=== PATIENT | female | born 1970 | race American Indian/Alaskan Native ===

== ENCOUNTER 2017-02-02 06:07 | Inpatient (IN) | payer BC, MEDICARE ==
[2017-01-28 11:34] VITALS: BMI 34.3
[2017-02-02] MEDS ORDERED: Bupivacaine HCl 0.25% PF (30 ml) Inj ONE (07:10)
[2017-02-02] MEDS ORDERED: Lidocaine 2% w Epi 1:100,000 Inj IJ ONE (07:11)
[2017-02-02] MEDS ORDERED: Absorbable Gelatin Sponge Size 12-7 ONE (07:11)
[2017-02-02] MEDS ORDERED: Bacitracin Ointment 30 GM TUBE ONE (07:11)
[2017-02-02] MEDS ORDERED: Rocuronium 10 mg/ml (5 ml) ONE (07:12)
[2017-02-02] MEDS ORDERED: Midazolam 2 MG/2 ML VIAL ONE (07:12)
[2017-02-02] MEDS ORDERED: Propofol 10 mg/ml Inj (20 ML) ONE (07:12)
[2017-02-02] MEDS ORDERED: Succinylcholine 200 mg/10 ml Inj IV ONE (07:16)
[2017-02-02] MEDS ORDERED: Lidocaine 4% (Laryng-O-Jet) Kit MM ONE (07:18)
--- NOTE | 2017-02-02 07:27 | CP.PCM.CON ---
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 Denton for further evaluation,denies pelvic paresthesias,fall ,bowel or bladder incontinance. Review of Systems - Review of Systems Systems not reviewed;Unavailable: Acuity of Condition - EENT Eyes: Requires Corrective Lenses - Cardiovascular Additional comments: Hx TIA x2 in past neg w/u,denies angina,palpitations or [place] - Musculoskeletal Musculoskeletal: Muscle Weakness, Radiating Pain into Limb, Tingling - Integumentary Additional comments: healed surgical scar's - Neurological Neurological: As Per HPI Past Patient History - Infectious Disease Hx of Infectious Diseases: None - Tetanus Immunizations Tetanus Immunization: Unknown - Past Medical History & Family History Past Medical History?: Yes - Past Social History Smoking Status: Current Some Days Smoker Chewing Tobacco Use: No Cigar Use: No 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 Alcohol: 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 Drugs: Cannabis Home Situation {Lives}: With Family Domestic Violence: Negative - CARDIAC Hx Cardiac Disorders: Yes - PULMONARY Hx Respiratory Disorders: Yes (SMOKES CIGARETTES) - NEUROLOGICAL Hx Transient Ischemic Attacks (TIA): No - HEENT Hx HEENT Problems: No - RENAL Hx Chronic Kidney Disease: No - HEMATOLOGICAL/ONCOLOGICAL Hx Blood Disorders: Yes - INTEGUMENTARY Hx Dermatological Problems: Yes (TATTOOS) - MUSCULOSKELETAL/RHEUMATOLOGICAL Hx Musculoskeletal Disorders: Yes (LAMINECTOMY L4L5,LUMBAR RADICULOPATHY) Other/Comment: TITANIUM SUE TO LOWER BACK.LAMINECTOMY, - GASTROINTESTINAL Hx Gastrointestinal Disorders: No - GENITOURINARY/GYNECOLOGICAL Hx Genitourinary Disorders: Yes - PSYCHIATRIC Hx Psychophysiologic Disorder: No - SURGICAL HISTORY Hx Surgeries: Yes (PARTIAL HYSTERECTOMY,C/S X 1) Hx Appendectomy: Yes (1991) Hx Hysterectomy: Yes Other/Comment: BACK SURGERY WITH TITANIUM SUE,CESEREAN SECTION X 1 - ANESTHESIA Hx Anesthesia: Yes Hx Anesthesia Reactions: No Hx Malignant Hyperthermia: No Has any member of the family had a problem w/ anesthesia?: No Meds Allergies/Adverse Reactions: Allergies Allergy/AdvReac Type Severity Reaction Status Date / Time Penicillins Allergy ANAPHYLAXIS Verified 02/02/17 06:47 Physical Exam - Constitutional Appears: Well, Non-toxic, No Acute Distress - Head Exam Head Exam: ATRAUMATIC, NORMAL INSPECTION, NORMOCEPHALIC - Eye Exam Eye Exam: EOMI, Normal appearance, PERRL Pupil Exam: NORMAL ACCOMODATION - ENT Exam ENT Exam: Mucous Membranes Moist - Neck Exam Neck exam: Positive for: Normal Inspection - Respiratory Exam Respiratory Exam: Clear to Auscultation Bilateral, NORMAL BREATHING PATTERN - Cardiovascular Exam Cardiovascular Exam: REGULAR RHYTHM, +S1, +S2 - GI/Abdominal Exam GI & Abdominal Exam: Normal Bowel Sounds, Soft - Rectal Exam Rectal Exam: Deferred - Extremities Exam Extremities exam: Positive for: pedal pulses present Additional comments: + Lichen Planus - Back Exam Back exam: vertebral tenderness - Neurological Exam Neurological exam: Alert, Oriented x3 Additional comments: Minimally able to lift left leg off bed,LLE weakness 3+/5 with paresthesias,RLE 4+/5 sensory intact,unstewady gait,no pelvic paresthesias,depressed DTR's - Psychiatric Exam Psychiatric exam: Normal Affect, Normal Mood - Skin Skin Exam: Dry, Intact Results - Vital Signs Recent Vital Signs: Last Vital Signs Temp 98.3 F 02/02/17 06:41 Pulse 64 02/02/17 06:41 Resp 18 02/02/17 06:41 BP 116/75 02/02/17 06:41 Pulse Ox 99 02/02/17 06:41 Assessment & Plan - Assessment and Plan (Free Text) Assessment: 46 yo female with recurrent Lumbar Spondylosis/Instability/LLE radiculapathy Plan: here today for proposed Lumbar Laminectomy and extension of prior fusion with Dr. Denton,risks and benefits explained to pt,expressed understanding and wishes to proceed.
[2017-02-02] MEDS ORDERED: Lactated Ringer's 1,000 ML IV ONE ×2 (07:47→09:07)
[2017-02-02] MEDS ORDERED: Lidocaine 2% w Epi 1:200,000 Pf Inj IJ ONE (08:08)
[2017-02-02] MEDS ORDERED: Dexamethasone 4 mg/1 ml ONE (08:25)
[2017-02-02] MEDS ORDERED: HEMOSTATIC MATRIX 10 ML DIS.NEEDLE TOP ONE (08:32)
[2017-02-02] MEDS ORDERED: Neostigmine Methylsulfate 3mg/3ml Syringe IV ONE (08:57)
[2017-02-02] MEDS ORDERED: Bupivacaine 0.25% Inj(30mL) IJ ONE (10:19)
[2017-02-02] MEDS ORDERED: HYDROmorphone 0.5 mg/0.5 ml ISec ONE (10:42)
[2017-02-02] MEDS: HYDROmorphone 0.5 mg/0.5 ml ISec IVP PRN ×5 (10:50→14:30)
[2017-02-02] MEDS: Lactated Ringer's 1,000 ML IV SCH (15:30)
[2017-02-02] MEDS: Dexamethasone 4 MG in Sodium Chloride 0.9% 50 ML IVPB SCH ×2 (16:55→23:13)
--- NOTE | 2017-02-02 16:56 | RAD ---
PROCEDURE: Fluoroscopy over 1 hour HISTORY: PLIF COMPARISON: None TECHNIQUE: Standard protocol for this study/examination. FINDINGS: Total fluoroscopic time (continuous mode) utilized during the procedure: 34.1 seconds. IMPRESSION: Submitted images from the current procedure: 1.0
[2017-02-02] MEDS: Clindamycin 600 MG in Sodium Chloride 0.9% 100 ML IVPB SCH (21:03)
[2017-02-03] MEDS: Dexamethasone 4 MG in Sodium Chloride 0.9% 50 ML IVPB SCH ×4 (04:23→21:30)
[2017-02-03] MEDS: Lactated Ringer's 1,000 ML IV SCH ×2 (04:25→13:06)
--- NOTE | 2017-02-03 08:49 | OP ---
PROCEDURE DATE: 02/02/2017 PREOPERATIVE DIAGNOSES: Lumbar spondylosis and spinal instability. POSTOPERATIVE DIAGNOSES: Lumbar spondylosis and spinal instability. PROCEDURE: Re-exploration of L4-L5 lumbar laminectomy fusion instrumentation, L2-L4 lumbar laminecto my and L2-L5 pedicle screw fixation instrumentation, L2-L5 posterolateral fusion. Fluoroscopy has be en used. Microscope has been used. SURGEON: Dr. Denton CRATE TIER: Cassie Glass. Cassie Glass is a physician per di[place] physical therapist assistant who helped perform the surgery. She stayed throughout the case from beginning to the end. DESCRIPTION OF PROCEDURE: The patient was brought to the operating room, administered general endotr acheal anesthesia, placed in a prone position on a Damian table. Care was taken to protect all the pressure points. Back of the lumbar area thoroughly prepped and draped in standard sterile manner af ter marking for skin incision for lumbar laminectomy and fusion. After prepping and draping the area , skin has been incised. Bleeding skin areas have been controlled by bipolar plant superintendent. Using a Osorio vie plant superintendent, subcutaneous tissue has been cut. By using blunt dissection, the ____ defects have b een exposed at L4 and L5 and the previously placed rods and screws have been exposed. L2, L3, L4 owens dinesh has been exposed. At this point, the deep retractors have been applied. By using a traditional landmark, point of entry has been noted at L2 and L3. Amendia system screws have been placed and at this point under fluoroscopy guided control, position has been confirmed to be good. At this point, the previously placed instrumentation has been removed. ____ ____ has also been removed. Titanium r ods have been placed from L2-L5. Cap nuts have been used in order to secure them. After that, under microscope magnification and illumination, the lamina of L2, L3 and L4 have been removed. By using high-speed drill, the lamina have been drilled to eggshell thickness at L2-L3, L3-L4. By using a fin e Kerrison punch, thinned out surrounding lamina, ____ and thickened and buckled ligamentum flavum joseph s been removed decompressing this area. After that, lateral aspect of facet joints have been decorti cated and demineralized bone placed in the area achieving a posterolateral fusion from L2-L5. After that, hemostasis best achieved. Damian drain placed in the wound, brought out through separate stab knife skin incision. Muscles and fascia closed with 1-0 Vicryl, subcutaneous with 3-0 Vicryl, skin has been closed with intradermal 3-0 Vicryl stitches. The patient tolerated the procedure. After pr ocedure, mobilized to the recovery room in stable condition. Hi Denton MD cc: [id number] TT: 02/02/2017 18:24:04 sn
--- NOTE | 2017-02-03 09:26 | CP.PCM.CON ---
History of Present Illness - History of Present Illness History of Present Illness: 46 yo woman s/p lumbar fusion, POD #2. This is the patient's second lumbar fusion, prior to the surgery she was mostly on Tylenol for pain. The current pain is sharp, constant, with radiation down both thighs/legs. She was placed on Dilaudid OPAL POLISHER overnight and responded well to it.l She states that Flexeril was ineffective for her. She had been on both Neurontin and Lyrica before but doesn't recall their effects. 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 Drugs: Cannabis Home Situation {Lives}: With Family Domestic Violence: Negative - CARDIAC Hx Cardiac Disorders: Yes - PULMONARY Hx Respiratory Disorders: Yes (SMOKES CIGARETTES) - NEUROLOGICAL Hx Transient Ischemic Attacks (TIA): No - HEENT Hx HEENT Problems: No - RENAL Hx Chronic Kidney Disease: No - HEMATOLOGICAL/ONCOLOGICAL Hx Blood Disorders: Yes - INTEGUMENTARY Hx Dermatological Problems: Yes (TATTOOS) - MUSCULOSKELETAL/RHEUMATOLOGICAL Hx Musculoskeletal Disorders: Yes (LAMINECTOMY L4L5,LUMBAR RADICULOPATHY) Other/Comment: TITANIUM SUE TO LOWER BACK.LAMINECTOMY, - GASTROINTESTINAL Hx Gastrointestinal Disorders: No - GENITOURINARY/GYNECOLOGICAL Hx Genitourinary Disorders: Yes - PSYCHIATRIC Hx Psychophysiologic Disorder: No - SURGICAL HISTORY Hx Surgeries: Yes (PARTIAL HYSTERECTOMY,C/S X 1) Hx Appendectomy: Yes (1991) Hx Hysterectomy: Yes Other/Comment: BACK SURGERY WITH TITANIUM SUE,CESEREAN SECTION X 1 - ANESTHESIA Hx Anesthesia: Yes Hx Anesthesia Reactions: No Hx Malignant Hyperthermia: No Has any member of the family had a problem w/ anesthesia?: No Meds Allergies/Adverse Reactions: Allergies Allergy/AdvReac Type Severity Reaction Status Date / Time Penicillins Allergy ANAPHYLAXIS Verified 02/02/17 06:47 - Medications Medications: Current Medications Amlodipine Besylate (Norvasc) 10 mg PO DAILY [facility] Docusate Sodium (Colace) 100 mg PO BID [facility] Hydromorphone HCl (Dilaudid 0.2 Mg/Ml 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 Block Repairer) 0 mg IV PRN PRN; Protocol PRN Reason: Pain, severe (8-10) Last Admin: 02/02/17 15:30 Dose: 0 mg Clindamycin Phosphate 600 mg/ (Sodium Chloride) 104 mls @ 104 mls/hr IVPB Q12 [facility] Last Admin: 02/02/17 21:03 Dose: 104 mls/hr Dexamethasone 4 mg/ Sodium (Chloride) 51 mls @ 102 mls/hr IVPB Q6 [facility] Last Admin: 02/03/17 04:23 Dose: 102 mls/hr Lactated Ringer's (Lactated Ringer's) 1,000 mls @ 80 mls/hr IV .[id number] [facility] Stop: 02/03/17 15:00 Last Admin: 02/03/17 04:25 Dose: 80 mls/hr Lactulose (Enulose) 20 gm PO DAILY PRN PRN Reason: Constipation Pregabalin (Lyrica) 50 mg PO TID [facility] Physical Exam - Respiratory Exam Respiratory Exam: NORMAL BREATHING PATTERN - Cardiovascular Exam Cardiovascular Exam: REGULAR RHYTHM - Back Exam Additional comments: Dressing intact. TTP. Results - Vital Signs Recent Vital Signs: Last Vital Signs Temp 98.1 F 02/03/17 08:25 Pulse 59 L 02/03/17 08:25 Resp 18 02/03/17 08:25 BP 109/63 02/03/17 08:25 Pulse Ox 100 02/03/17 08:25 Assessment & Plan (1) Herniated disc Assessment and Plan: 46 yo woman s/p 2-level lumbar fusion, POD #1. - continue Dilaudid OPAL POLISHER for one more day, can change to 1mg IV q3h PRN tomorrow - start LYrica 50mg q8h - start Zanaflex 4mg q8h - PT eval Status: Acute
[2017-02-03] MEDS: Clindamycin 600 MG in Sodium Chloride 0.9% 100 ML IVPB SCH ×2 (09:46→21:26)
--- NOTE | 2017-02-03 14:04 | CP.PCM.HP ---
<Mike Cornell - Last Filed: 02/03/17 13:59> History of Present Illness - History of Present Illness History of Present Illness: 46 yo female with history of lumbar laminectomy and fusion L4-5 in 2015 with resolution of symptoms though pain reoccurred gradually over a year and worsening over past 6 mos w/ radiating bilateral lower extremities with paresthesias & worsening inability to ambulate due to left leg weakness. Patient is s/p lumbar fusion, POD #[address] Denton. Patient states she feels well though pain is still present. Pain management on board. No fever, chills, chest pain, abdominal pain, headache. Patient admits to constipation. Tolerating PO well. 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 Home Situation {Lives}: With Family Domestic Violence: Negative - CARDIAC Hx Cardiac Disorders: Yes - PULMONARY Hx Respiratory Disorders: Yes (SMOKES CIGARETTES) - NEUROLOGICAL Hx Transient Ischemic Attacks (TIA): No - HEENT Hx HEENT Problems: No - RENAL Hx Chronic Kidney Disease: No - HEMATOLOGICAL/ONCOLOGICAL Hx Blood Disorders: Yes - INTEGUMENTARY Hx Dermatological Problems: Yes (TATTOOS) - MUSCULOSKELETAL/RHEUMATOLOGICAL Hx Musculoskeletal Disorders: Yes (LAMINECTOMY L4L5,LUMBAR RADICULOPATHY) Other/Comment: TITANIUM SUE TO LOWER BACK.LAMINECTOMY, - GASTROINTESTINAL Hx Gastrointestinal Disorders: No - GENITOURINARY/GYNECOLOGICAL Hx Genitourinary Disorders: Yes - PSYCHIATRIC Hx Psychophysiologic Disorder: No - SURGICAL HISTORY Hx Surgeries: Yes (PARTIAL HYSTERECTOMY,C/S X 1) Hx Appendectomy: Yes (1991) Hx Hysterectomy: Yes Other/Comment: BACK SURGERY WITH TITANIUM SUE,CESEREAN SECTION X 1 - ANESTHESIA Hx Anesthesia: Yes Hx Anesthesia Reactions: No Hx Malignant Hyperthermia: No Has any member of the family had a problem w/ anesthesia?: No Meds Allergies/Adverse Reactions: Allergies Allergy/AdvReac Type Severity Reaction Status Date / Time Penicillins Allergy ANAPHYLAXIS Verified 02/02/17 06:47 Physical Exam - Constitutional Appears: Well, Non-toxic, No Acute Distress - Head Exam Head Exam: ATRAUMATIC, NORMAL INSPECTION, NORMOCEPHALIC - Eye Exam Eye Exam: EOMI, Normal appearance - Neck Exam Neck exam: Positive for: Normal Inspection - Respiratory Exam Respiratory Exam: Clear to Auscultation Bilateral, NORMAL BREATHING PATTERN - Cardiovascular Exam Cardiovascular Exam: REGULAR RHYTHM, +S1, +S2 - GI/Abdominal Exam GI & Abdominal Exam: Normal Bowel Sounds, Soft. absent: Tenderness - Extremities Exam Extremities exam: Positive for: normal inspection. Negative for: calf tenderness - Back Exam Additional comments: dressing clean dry and intact, tenderness to palpation - Neurological Exam Neurological exam: Alert, Oriented x3 - Psychiatric Exam Psychiatric exam: Normal Affect, Normal Mood - Skin Skin Exam: Dry, Intact, Normal Color, Warm Results - Vital Signs Recent Vital Signs: Last Vital Signs Temp 98.4 F 02/03/17 12:35 Pulse 70 02/03/17 12:35 Resp 18 02/03/17 12:35 BP 131/76 02/03/17 12:35 Pulse Ox 97 02/03/17 12:35 Assessment & Plan (1) Herniated disc Assessment and Plan: s/p 2nd laminectomy/extension of fusion POD #1 Pain control via pain management/surgery PT ordered Colace for constipation likely related to pain meds Status: Acute (2) Hypertension Assessment and Plan: Controlled. C/w norvasc Status: Acute (3) Prophylactic measure Assessment and Plan: SCDs for now, awaiting labs Status: Acute <Paresh Rivera - Last Filed: 02/07/17 09:12> Results - Vital Signs Recent Vital Signs: Last Vital Signs Temp 98.6 F 02/04/17 15:50 Pulse 89 02/04/17 15:50 Resp 18 02/04/17 15:50 BP 152/80 H 02/04/17 15:50 Pulse Ox 95 02/04/17 15:50 - Labs Result Diagrams: 02/03/17 17:10 02/03/17 17:10 Assessment & Plan - Assessment and Plan (Free Text) Plan: Iwas present during evaluation and personally examined patient. Discussed with Dr Cornell re plans f care and tx. Paresh Rivera M.D.
[2017-02-03 17:17] LABS: HEMATOCRIT 32.2 % (34.0-47.0); MEAN CELL VOLUME 89.4 fl (81.0-99.0); MEAN CORPUSCULAR HEMOGLOBIN 28.1 pg (27.0-31.0); MEAN CORPUSCULAR HGB CONC 31.5 g/dL (33.0-37.0); RED CELL DISTRIBUTION WIDTH 14.8 % (11.5-14.5); WHITE BLOOD COUNT 18.1 K/uL (4.8-10.8)
[2017-02-03 17:29] LABS: BLOOD UREA NITROGEN 13 mg/dl (7-17); CALCIUM 9.7 mg/dL (8.4-10.2); CARBON DIOXIDE 26 mmol/L (22-30); CHLORIDE 104 mmol/L (98-107); GFR AFRICAN-AMERICAN > 60; GLUCOSE,RANDOM 133 mg/dL (65-105); POTASSIUM 4.6 MMOL/L (3.6-5.0); SODIUM 138 mmol/l (132-148)
[2017-02-04] MEDS: Dexamethasone 4 MG in Sodium Chloride 0.9% 50 ML IVPB SCH ×2 (04:50→09:06)
--- NOTE | 2017-02-04 08:50 | CP.PCM.PN ---
Subjective - Date & Time of Evaluation Date of Evaluation: 02/04/17 Time of Evaluation: 08:20 - Subjective Subjective: 46 yo woman, POD #2, s/p lumbar fusion. Doing well clinically, pain is controlled on regimen. Complains of constipation. No side effects to current regimen. Zanaflex helps better than Flexeril. Objective - Vital Signs/Intake and Output Vital Signs (last 24 hours): Temp Pulse Resp BP Pulse Ox 98.5 F 94 H 20 114/70 100 02/04/17 08:14 02/04/17 08:14 02/04/17 08:14 02/04/17 08:14 02/04/17 08:14 Intake and Output: 02/04/17 02/04/17 06:59 18:59 Output Total 130 90 Balance -130 -90 - Medications Medications: Current Medications Amlodipine Besylate (Norvasc) 10 mg PO DAILY [facility] Last Admin: 02/03/17 09:47 Dose: 10 mg Docusate Sodium (Colace) 100 mg PO BID [facility] Last Admin: 02/03/17 16:46 Dose: 100 mg Hydromorphone HCl (Dilaudid) 1 mg IVP Q3 PRN PRN Reason: Pain, severe (8-10) Clindamycin Phosphate 600 mg/ (Sodium Chloride) 104 mls @ 104 mls/hr IVPB Q12 [facility] Last Admin: 02/03/17 21:26 Dose: 104 mls/hr Dexamethasone 4 mg/ Sodium (Chloride) 51 mls @ 102 mls/hr IVPB Q6 [facility] Last Admin: 02/04/17 04:50 Dose: 102 mls/hr Lactulose (Enulose) 20 gm PO DAILY PRN PRN Reason: Constipation Last Admin: 02/04/17 05:32 Dose: 20 gm Pregabalin (Lyrica) 50 mg PO TID [facility] Last Admin: 02/03/17 16:46 Dose: 50 mg Tizanidine HCl (Zanaflex) 4 mg PO Q8 [facility] Last Admin: 02/04/17 00:38 Dose: 4 mg - Labs Labs: 02/03/17 17:10 02/03/17 17:10 - Respiratory Exam Respiratory Exam: NORMAL BREATHING PATTERN - Cardiovascular Exam Cardiovascular Exam: REGULAR RHYTHM Assessment and Plan (1) Herniated disc Assessment & Plan: 46 yo woman s/p lumbar fusion. POD #2. 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
[2017-02-04] MEDS: Clindamycin 600 MG in Sodium Chloride 0.9% 100 ML IVPB SCH (09:06)
[2017-02-04] MEDS ORDERED: Magnesium Citrate Oral SOL (300 ml) PO ONE (10:00)
[2017-02-04] MEDS: HYDROmorphone 0.5 mg/0.5 ml ISec IVP PRN ×2 (12:36→16:24)
--- NOTE | 2017-02-04 13:44 | CP.PCM.PN ---
<Mike Cornell - Last Filed: 02/04/17 13:38> Subjective - Date & Time of Evaluation Date of Evaluation: 02/04/17 Time of Evaluation: 10:38 - Subjective Subjective: Patient seen and examined at bedside. No acute events overnight. Transferred to Med/Surg floor. Patient feels much improved with pain regime. Flatus present though still no BM. No fever, chills, abdominal pain, headache, chest pain, or sob. OOB. 90ml of fluid drained in last 24hrs. Objective - Vital Signs/Intake and Output Vital Signs (last 24 hours): Temp Pulse Resp BP Pulse Ox 98.5 F 94 H 20 114/70 100 02/04/17 08:14 02/04/17 09:07 02/04/17 08:14 02/04/17 09:07 02/04/17 08:14 Intake and Output: 02/04/17 02/04/17 06:59 18:59 Output Total 130 90 Balance -130 -90 - Medications Medications: Current Medications Amlodipine Besylate (Norvasc) 10 mg PO DAILY [facility] Last Admin: 02/04/17 09:07 Dose: 10 mg Docusate Sodium (Colace) 100 mg PO BID [facility] Last Admin: 02/04/17 09:07 Dose: 100 mg Hydromorphone HCl (Dilaudid) 1 mg IVP Q3 PRN PRN Reason: Pain, severe (8-10) Last Admin: 02/04/17 12:36 Dose: 1 mg Clindamycin Phosphate 600 mg/ (Sodium Chloride) 104 mls @ 104 mls/hr IVPB Q12 [facility] Last Admin: 02/04/17 09:06 Dose: 104 mls/hr Dexamethasone 4 mg/ Sodium (Chloride) 51 mls @ 102 mls/hr IVPB Q8 [facility] Lactulose (Enulose) 20 gm PO DAILY PRN PRN Reason: Constipation Last Admin: 02/04/17 09:07 Dose: 20 gm Pregabalin (Lyrica) 50 mg PO TID [facility] Last Admin: 02/04/17 11:21 Dose: 50 mg Tizanidine HCl (Zanaflex) 4 mg PO Q8 [facility] Last Admin: 02/04/17 09:08 Dose: 4 mg - Labs Labs: 02/03/17 17:10 02/03/17 17:10 - Constitutional Appears: Well, Non-toxic, No Acute Distress - Head Exam Head Exam: ATRAUMATIC, NORMAL INSPECTION, NORMOCEPHALIC - Eye Exam Eye Exam: EOMI, Normal appearance - Neck Exam Neck Exam: Normal Inspection - Respiratory Exam Respiratory Exam: Clear to Ausculation Bilateral, NORMAL BREATHING PATTERN - Cardiovascular Exam Cardiovascular Exam: REGULAR RHYTHM, +S1, +S2. absent: Murmur - GI/Abdominal Exam GI & Abdominal Exam: Soft, Normal Bowel Sounds. absent: Tenderness - Neurological Exam Neurological Exam: Alert, Awake, Oriented x3 - Psychiatric Exam Psychiatric exam: Normal Affect, Normal Mood - Skin Skin Exam: Dry, Intact, Normal Color, Warm Additional comments: dressing clean dry and intact - Additional Findings Additional findings: drain with moderate amount of serosangius fluid Assessment and Plan (1) Herniated disc Assessment & Plan: s/p 2nd laminectomy/extension of fusion POD #2 Pain control via pain management/surgery c/w PT Colace/dulcolax/mag citrate/lactulose prn for constipation likely related to pain meds Spoke with surgical team, drain will stay for the weekend as there is good output. Consider further rehab via TCU. Status: Acute (2) Hypertension Assessment & Plan: Controlled. C/w norvasc Status: Acute (3) Prophylactic measure Assessment & Plan: mild thrombocytopenia noted on CBC, will hold Lovenox until repeat CBC tomorrow. SCDs/OOB for now Status: Acute <Paresh Rivera - Last Filed: 02/07/17 09:13> Objective - Vital Signs/Intake and Output Vital Signs (last 24 hours): Temp Pulse Resp BP Pulse Ox 98.6 F 89 18 152/80 H 95 02/04/17 15:50 02/04/17 15:50 02/04/17 15:50 02/04/17 15:50 02/04/17 15:50 - Labs Labs: 02/03/17 17:10 02/03/17 17:10 Assessment and Plan - Assessment and Plan (Free Text) Plan: I was present during evaluation and discussed with patient re plans of care. Paresh Rivera M.D.
[2017-02-04 15:51] VITALS: BP 152/80; PULSE 89; RESP 18; TEMP 98.6; O2SAT 95
[2017-02-04] MEDS ORDERED: Dexamethasone 4 MG in Sodium Chloride 0.9% 50 ML IVPB SCH (17:00)
--- NOTE | 2017-02-07 09:16 | CP.PCM.DIS ---
Provider - Provider Date of Admission: 02/02/17 11:04 Attending physician: Paresh Rivera MD Primary care physician: Mary Ellen Aleman MD Time Spent in preparation of Discharge (in minutes): 30 Hospital Course - Lab Results Lab Results: Most Recent Lab Values WBC 18.1 K/uL (4.8-10.8) H D 02/03/17 17:10 RBC 3.60 Mil/uL (3.80-5.20) L 02/03/17 17:10 Hgb 10.1 g/dL (12.0-16.0) L D 02/03/17 17:10 Hct 32.2 % (34.0-47.0) L 02/03/17 17:10 MCV 89.4 fl (81.0-99.0) 02/03/17 17:10 MCH 28.1 pg (27.0-31.0) 02/03/17 17:10 MCHC 31.5 g/dL (33.0-37.0) L 02/03/17 17:10 RDW 14.8 % (11.5-14.5) H 02/03/17 17:10 Plt Count 146 K/uL (130-400) 02/03/17 17:10 Sodium 138 mmol/l (132-148) 02/03/17 17:10 Potassium 4.6 MMOL/L (3.6-5.0) 02/03/17 17:10 Chloride 104 mmol/L (98-107) 02/03/17 17:10 Carbon Dioxide 26 mmol/L (22-30) 02/03/17 17:10 Anion Gap 12 (10-20) 02/03/17 17:10 BUN 13 mg/dl (7-17) 02/03/17 17:10 Creatinine 0.7 mg/dL (0.7-1.2) 02/03/17 17:10 Est GFR ( Amer) > 60 02/03/17 17:10 Est GFR (Non-Af Amer) > 60 02/03/17 17:10 Random Glucose 133 mg/dL (65-105) H 02/03/17 17:10 Calcium 9.7 mg/dL (8.4-10.2) 02/03/17 17:10 - Hospital Course Hospital Course: This is a 46 y/0 female with hx of intractable lower back pain and previous hx of L4L5 laminectomy. Post op period was unremarkable except for significant amount of drainage. She was started on Phys therapy and suggested to continue PT at the subacute rehab/ TCU. Discharge Exam - Head Exam Head Exam: ATRAUMATIC, NORMAL INSPECTION, NORMOCEPHALIC - Eye Exam Eye Exam: Normal appearance - Respiratory Exam Respiratory Exam: NORMAL BREATHING PATTERN - Cardiovascular Exam Cardiovascular Exam: REGULAR RHYTHM - GI/Abdominal Exam GI & Abdominal Exam: Normal Bowel Sounds - Neurological Exam Neurological exam: CN II-XII Intact, Oriented x3 - Psychiatric Exam Psychiatric exam: Anxious Discharge Plan - Discharge Medications Prescriptions: Clindamycin [Cleocin] 600 mg IVPB Q12 #8 vial Dexamethasone [Decadron] 4 mg IVPB Q8 #6 vial oxyCODONE/Acetaminophen [Percocet 5/325 mg Tab] 1 ea PO Q4 PRN #14 tab PRN Reason: pain - Follow Up Plan Condition: GOOD Disposition: REHAB FACILITY/REHAB UNIT Instructions: Laminectomy (DC) Additional Instructions: patient cleared for discharge to TCU when bed available as per cont. Clina, decadron taper discussed with Dr Lopez and discharge patient in stable condition. Paresh Rivera M.D. Referrals: Mary Ellen Aleman MD [Primary Care Provider] - Hi Denton MD [Staff Provider] - Paresh Rivera MD [Staff Provider] -
== END 2017-02-04 18:15 | DRG 460 ==
LOC: H.OPSURG 06:07 → H.TEL 11:04 → H.MEDSURG1 02-03 18:29
PROVIDERS: ADMIT Family Medicine; ATTEND Family Medicine
PROC: 01NB0ZZ Release Lumbar Nerve, Open Approach (ICD-10-PCS; 2017-02-02)
PROC: 0SG10Z1 (ICD-10-PCS; principal; 2017-02-02 07:45)
PROC: F07Z9FZ Gait Training/Functional Ambulation Treatment using Assistive, Adaptive, Supportive or Protective Equipment (ICD-10-PCS; 2017-02-03)
DX: M47.816 Spondylosis without myelopathy or radiculopathy, lumbar region (principal); D69.59 Other secondary thrombocytopenia; M51.26 Other intervertebral disc displacement, lumbar region; I10 Essential (primary) hypertension; K59.09 Other constipation; F17.210 Nicotine dependence, cigarettes, uncomplicated; Z88.0 Allergy status to penicillin

== ENCOUNTER 2017-02-04 17:26 | Inpatient (IN) | payer BC, OTHER ==
[2017-01-28 09:31] VITALS: BMI 34.3
[2017-02-04 19:45] VITALS: RESP 20
[2017-02-04] MEDS: Clindamycin 600 MG in Sodium Chloride 0.9% 100 ML IVPB SCH (20:25)
[2017-02-04] MEDS ORDERED: Clindamycin 300 mg/2 ml Inj IVPB SCH (21:00)
[2017-02-04] MEDS: Oxycodone/Acetaminophen 5/325 mg Tab PO PRN (23:17)
[2017-02-05] MEDS: Dexamethasone 4 MG in Sodium Chloride 0.9% 50 ML IVPB SCH ×2 (00:20→09:32)
[2017-02-05] MEDS ORDERED: Dexamethasone 4 mg/1 ml IVPB SCH (01:00)
[2017-02-05] MEDS: Oxycodone/Acetaminophen 5/325 mg Tab PO PRN ×2 (06:56→16:26)
[2017-02-05] MEDS: Clindamycin 600 MG in Sodium Chloride 0.9% 100 ML IVPB SCH ×2 (08:23→20:22)
[2017-02-06] MEDS: Oxycodone/Acetaminophen 5/325 mg Tab PO PRN ×3 (05:06→20:30)
[2017-02-06] MEDS: Clindamycin 600 MG in Sodium Chloride 0.9% 100 ML IVPB SCH ×2 (17:11→19:21)
[2017-02-07] MEDS: Clindamycin 600 MG in Sodium Chloride 0.9% 100 ML IVPB SCH ×2 (05:38→17:28)
[2017-02-07] MEDS: Oxycodone/Acetaminophen 5/325 mg Tab PO PRN ×3 (05:47→21:18)
--- NOTE | 2017-02-07 09:25 | CP.PCM.HP ---
History of Present Illness - History of Present Illness History of Present Illness: This is a 46 y/o female with hx of intractable pain was admitted to TCU for continuation of phys therapy. She has a hx of intractable pain lower back from herniated disc. Had a laminectomy L2L3 and post op period was unremarkable. She had previous L4L5 laminectomy. Has hx of HTN Has no chets pain or SOB or fever. Patient continues to have a lot of drainage. Present on Admission - Present on Admission Any Indicators Present on Admission: No History of DVT/PE: No History of Uncontrolled Diabetes: No Urinary Catheter: No Decubitus Ulcer Present: No Past Patient History - Infectious Disease Hx of Infectious Diseases: None - Tetanus Immunizations Tetanus Immunization: Unknown - Past Medical History & Family History Past Medical History?: Yes - Past Social History Smoking Status: Current Some Days Smoker - CARDIAC Hx Cardiac Disorders: Yes - PULMONARY Hx Respiratory Disorders: Yes (SMOKES CIGARETTES) - NEUROLOGICAL HX Cerebrovascular Accident: Yes - HEENT Hx HEENT Problems: No - RENAL Hx Chronic Kidney Disease: No - HEMATOLOGICAL/ONCOLOGICAL Hx Blood Disorders: Yes Hx Anemia: Yes - INTEGUMENTARY Hx Dermatological Problems: Yes (TATTOOS) - MUSCULOSKELETAL/RHEUMATOLOGICAL Hx Musculoskeletal Disorders: Yes (LAMINECTOMY L4L5,LUMBAR RADICULOPATHY) Hx Falls: No Other/Comment: TITANIUM SUE TO LOWER BACK.LAMINECTOMY, - GASTROINTESTINAL Hx Gastrointestinal Disorders: No - GENITOURINARY/GYNECOLOGICAL Hx Genitourinary Disorders: Yes - PSYCHIATRIC Hx Psychophysiologic Disorder: No Hx Substance Use: No - SURGICAL HISTORY Hx Surgeries: Yes (PARTIAL HYSTERECTOMY,C/S X 1) Hx Appendectomy: Yes (1991) Hx Hysterectomy: Yes Other/Comment: BACK SURGERY WITH TITANIUM SUE,CESEREAN SECTION X 1 - ANESTHESIA Hx Anesthesia: Yes Hx Anesthesia Reactions: No Hx Malignant Hyperthermia: No Has any member of the family had a problem w/ anesthesia?: No Meds Allergies/Adverse Reactions: Allergies Allergy/AdvReac Type Severity Reaction Status Date / Time Penicillins Allergy ANAPHYLAXIS Verified 02/02/17 06:47 Physical Exam - Head Exam Head Exam: NORMAL INSPECTION - Eye Exam Eye Exam: Normal appearance - ENT Exam ENT Exam: Mucous Membranes Moist - Respiratory Exam Respiratory Exam: Clear to Auscultation Bilateral - Cardiovascular Exam Cardiovascular Exam: REGULAR RHYTHM - GI/Abdominal Exam GI & Abdominal Exam: Normal Bowel Sounds - Neurological Exam Neurological exam: CN II-XII Intact - Psychiatric Exam Psychiatric exam: Normal Mood Results - Vital Signs Recent Vital Signs: Last Vital Signs Temp 97.9 F 02/07/17 08:10 Pulse 53 L 02/07/17 08:21 Resp 20 02/07/17 08:10 BP 111/66 02/07/17 08:21 Pulse Ox 99 02/07/17 08:10 Assessment & Plan (1) Gait abnormality Status: Acute (2) Gait abnormality Status: Acute (3) Hypertension Status: Acute (4) Lumbar radiculopathy Status: Acute - Assessment and Plan (Free Text) Plan: cont meds Cont tx Cont PT pain meds. keep drain for now.
--- NOTE | 2017-02-07 09:40 | CP.PCM.PN ---
Subjective - Date & Time of Evaluation Date of Evaluation: 02/07/17 Time of Evaluation: 09:37 - Subjective Subjective: Continues to have a lot of drainage. Complains of increased pain and tenderness in the right lower back and claims to have muscle spasm. Has no fever. Objective - Vital Signs/Intake and Output Vital Signs (last 24 hours): Temp Pulse Resp BP Pulse Ox 97.9 F 53 L 20 111/66 99 02/07/17 08:10 02/07/17 08:21 02/07/17 08:10 02/07/17 08:21 02/07/17 08:10 - Medications Medications: Current Medications Amlodipine Besylate (Norvasc) 10 mg PO DAILY [facility] Last Admin: 02/07/17 08:21 Dose: 10 mg Dexamethasone (Decadron) 2 mg PO Q12 [facility] Last Admin: 02/07/17 08:20 Dose: 2 mg Docusate Sodium (Colace) 100 mg PO BID [facility] Last Admin: 02/07/17 08:20 Dose: 100 mg Hydromorphone HCl (Dilaudid) 2 mg PO Q4 PRN PRN Reason: Pain, moderate (4-7) Last Admin: 02/07/17 08:29 Dose: 2 mg Clindamycin Phosphate 600 mg/ (Sodium Chloride) 104 mls @ 54 mls/hr IVPB Q12@ 0500,1700 [facility] Last Admin: 02/07/17 05:38 Dose: 54 mls/hr Ibuprofen (Motrin Tab) 600 mg PO Q8 [facility] Last Admin: 02/07/17 08:20 Dose: 600 mg Lactulose (Enulose) 20 gm PO DAILY PRN PRN Reason: Constipation Oxycodone/Acetaminophen (Percocet 5/325 Mg Tab) 1 tab PO Q4 PRN PRN Reason: pain Stop: 02/07/17 18:27 Last Admin: 02/07/17 05:47 Dose: 1 tab Pregabalin (Lyrica) 50 mg PO TID [facility] Last Admin: 02/07/17 08:20 Dose: 50 mg Tizanidine HCl (Zanaflex) 4 mg PO Q8 [facility] Last Admin: 02/07/17 08:21 Dose: 4 mg - Head Exam Head Exam: NORMAL INSPECTION - Eye Exam Eye Exam: Normal appearance - ENT Exam ENT Exam: Mucous Membranes Moist - Respiratory Exam Respiratory Exam: Clear to Ausculation Bilateral - Cardiovascular Exam Cardiovascular Exam: REGULAR RHYTHM - GI/Abdominal Exam GI & Abdominal Exam: Normal Bowel Sounds - Back Exam Additional comments: sight tenderness lower back - Neurological Exam Neurological Exam: CN II-XII Intact, Oriented x3 Assessment and Plan (1) Gait abnormality Status: Acute (2) Gait abnormality Status: Acute (3) Hypertension Status: Acute (4) Lumbar radiculopathy Status: Acute - Assessment and Plan (Free Text) Plan: Cont meds cont tx cyclobenzaprine bid cont pain meds.
[2017-02-07 11:21] LABS: BASO % 0.3 % (0.0-2.0); EOS % 0.1 % (0.0-4.0); HEMATOCRIT 33.6 % (34.0-47.0); LYMPH # 3.2 K/uL (1.0-4.3); LYMPH % 18.8 % (20.0-40.0); MEAN CELL VOLUME 88.5 fl (81.0-99.0); MEAN CORPUSCULAR HEMOGLOBIN 28.3 pg (27.0-31.0); MEAN CORPUSCULAR HGB CONC 31.9 g/dL (33.0-37.0); MEAN PLATELET VOLUME 9.3 fl (7.2-11.7); MONO # 1.2 K/uL (0.0-0.8); MONO % 6.8 % (0.0-10.0); NEUT # 12.5 K/uL (1.8-7.0); NRBC % 0.4 % (0.0-0.0); RED CELL DISTRIBUTION WIDTH 14.5 % (11.5-14.5); WHITE BLOOD COUNT 16.9 K/uL (4.8-10.8)
[2017-02-07 11:48] LABS: ALB/GLOB RATIO 1.4 (1.0-2.1); ALKALINE PHOSPHATASE 39 U/L (38-126); ALT/SGPT 26 U/L (9-52); AST/SGOT 18 U/L (14-36); BILIRUBIN,TOTAL 0.2 mg/dl (0.2-1.3); BLOOD UREA NITROGEN 13 mg/dl (7-17); CALCIUM 9.2 mg/dL (8.4-10.2); CARBON DIOXIDE 27 mmol/L (22-30); CHLORIDE 104 mmol/L (98-107); GFR AFRICAN-AMERICAN > 60; GLUCOSE,RANDOM 106 mg/dL (65-105); POTASSIUM 4.1 MMOL/L (3.6-5.0); SODIUM 137 mmol/l (132-148); TOTAL PROTEIN 6.4 G/DL (6.3-8.2)
[2017-02-07] MEDS ORDERED: Clindamycin 600 MG in Sodium Chloride 0.9% 100 ML IVPB SCH (17:09)
--- NOTE | 2017-02-07 19:06 | CP.PCM.CON ---
History of Present Illness - History of Present Illness History of Present Illness: Dr Obregon PMR consultation on Grace Bedolla, born 1970, who has been admitted to [facility]CU following L2/[address] Denton. She had past L4/5 in 2014. Post op lumbar pain is doing ok, has right lumbar radicular pain, on steroids to help with inflammation, but still draining which is likely contributing to the persistent radicular symptoms. On dilaudid po helps, but doesn't last long for her. On Lyrica as well and Flexeril. I do not feel comfortable increasing narcotics beyond what she is on regardless of her lack of subjective response to this medication Review of Systems - Constitutional Constitutional: absent: Anorexia, Chills - EENT Eyes: absent: Blind Spots, Blurred Vision Nose/Mouth/Throat: absent: Nasal Congestion, Nasal Discharge - Cardiovascular Cardiovascular: absent: Chest Pain - Respiratory Respiratory: absent: Dyspnea - Gastrointestinal Gastrointestinal: absent: Belching, Bloating - Musculoskeletal Musculoskeletal: Radiating Pain into Limb (right leg and numbness) - Neurological Neurological: Radicular Pain. absent: Abnormal Movements Past Patient History - Infectious Disease Hx of Infectious Diseases: None - Tetanus Immunizations Tetanus Immunization: Unknown - Past Medical History & Family History Past Medical History?: Yes - Past Social History Smoking Status: Heavy Smoker > 10 Cigarettes Daily Chewing Tobacco Use: No Alcohol: Other (more than social etoh) Drugs: Cannabis Home Situation {Lives}: With Family (steps) - CARDIAC Hx Cardiac Disorders: Yes - PULMONARY Hx Respiratory Disorders: Yes (SMOKES CIGARETTES) - NEUROLOGICAL HX Cerebrovascular Accident: Yes - HEENT Hx HEENT Problems: No - RENAL Hx Chronic Kidney Disease: No - HEMATOLOGICAL/ONCOLOGICAL Hx Blood Disorders: Yes Hx Anemia: Yes - INTEGUMENTARY Hx Dermatological Problems: Yes (TATTOOS) - MUSCULOSKELETAL/RHEUMATOLOGICAL Hx Musculoskeletal Disorders: Yes (LAMINECTOMY L4L5,LUMBAR RADICULOPATHY) Hx Falls: No Other/Comment: TITANIUM SUE TO LOWER BACK.LAMINECTOMY, - GASTROINTESTINAL Hx Gastrointestinal Disorders: No - GENITOURINARY/GYNECOLOGICAL Hx Genitourinary Disorders: Yes - PSYCHIATRIC Hx Psychophysiologic Disorder: No Hx Substance Use: No - SURGICAL HISTORY Hx Surgeries: Yes (PARTIAL HYSTERECTOMY,C/S X 1) Hx Appendectomy: Yes (1991) Hx Hysterectomy: Yes Other/Comment: BACK SURGERY WITH TITANIUM SUE,CESEREAN SECTION X 1 - ANESTHESIA Hx Anesthesia: Yes Hx Anesthesia Reactions: No Hx Malignant Hyperthermia: No Has any member of the family had a problem w/ anesthesia?: No Meds Allergies/Adverse Reactions: Allergies Allergy/AdvReac Type Severity Reaction Status Date / Time Penicillins Allergy ANAPHYLAXIS Verified 02/02/17 06:47 - Medications Medications: Current Medications Amlodipine Besylate (Norvasc) 10 mg PO DAILY [facility] Last Admin: 02/07/17 08:21 Dose: 10 mg Cyclobenzaprine HCl (Flexeril) 5 mg PO BID PRN PRN Reason: Muscle spasm Dexamethasone (Decadron) 2 mg PO Q12 [facility] Last Admin: 02/07/17 08:20 Dose: 2 mg Docusate Sodium (Colace) 100 mg PO BID [facility] Last Admin: 02/07/17 17:27 Dose: 100 mg Hydromorphone HCl (Dilaudid) 2 mg PO Q4 PRN PRN Reason: Pain, moderate (4-7) Last Admin: 02/07/17 08:29 Dose: 2 mg Clindamycin Phosphate 600 mg/ (Sodium Chloride) 104 mls @ 54 mls/hr IVPB Q12@ 0500,1700 [facility] Last Admin: 02/07/17 17:28 Dose: 54 mls/hr Ibuprofen (Motrin Tab) 600 mg PO Q8 [facility] Last Admin: 02/07/17 17:27 Dose: 600 mg Lactulose (Enulose) 20 gm PO DAILY PRN PRN Reason: Constipation Pregabalin (Lyrica) 50 mg PO TID [facility] Last Admin: 02/07/17 17:27 Dose: 50 mg Physical Exam - Constitutional Appears: Non-toxic, No Acute Distress - Head Exam Head Exam: ATRAUMATIC, NORMAL INSPECTION, NORMOCEPHALIC - Eye Exam Eye Exam: EOMI, Normal appearance - ENT Exam ENT Exam: Mucous Membranes Moist - Respiratory Exam Respiratory Exam: NORMAL BREATHING PATTERN - Cardiovascular Exam Cardiovascular Exam: REGULAR RHYTHM - GI/Abdominal Exam GI & Abdominal Exam: absent: Distended - Extremities Exam Extremities exam: Positive for: full ROM. Negative for: calf tenderness Results - Vital Signs Recent Vital Signs: Last Vital Signs Temp 98.6 F 02/07/17 16:45 Pulse 61 02/07/17 16:45 Resp 20 02/07/17 16:45 BP 141/72 02/07/17 16:45 Pulse Ox 99 02/07/17 16:45 - Labs Result Diagrams: 02/07/17 10:55 02/07/17 10:55 Labs: Laboratory Results - last 24 hr 02/07/17 02/07/17 10:55 10:55 WBC 16.9 H RBC 3.80 Hgb 10.7 L Hct 33.6 L MCV 88.5 MCH 28.3 MCHC 31.9 L RDW 14.5 Plt Count 210 MPV 9.3 Neut % (Auto) 74.0 Lymph % (Auto) 18.8 L [place] % (Auto) 6.8 Eos % (Auto) 0.1 Baso % (Auto) 0.3 Neut # 12.5 H Lymph # 3.2 Canadian # 1.2 H Eos # 0.0 Baso # 0.0 Sodium 137 Potassium 4.1 Chloride 104 Carbon Dioxide 27 Anion Gap 10 BUN 13 Creatinine 0.7 Est GFR ( Amer) > 60 Est GFR (Non-Af Amer) > 60 Random Glucose 106 H Calcium 9.2 Total Bilirubin 0.2 AST 18 ALT 26 Alkaline Phosphatase 39 Total Protein 6.4 Albumin 3.8 Globulin 2.7 Albumin/Globulin Ratio 1.4 Assessment & Plan - Assessment and Plan (Free Text) Assessment: 46 year old female s/p lumbar surgery, last in 2014. Post op pain and still draining. Drain has been left in. Lumbar pain is controlled right lumbar radicular pain though I do not feel comfortable increasing the pain medications which are appropriate PT/OT neurosurgery follow up for draining
[2017-02-08] MEDS: Oxycodone/Acetaminophen 5/325 mg Tab PO PRN ×5 (01:25→20:51)
[2017-02-08] MEDS: Clindamycin 600 MG in Sodium Chloride 0.9% 100 ML IVPB SCH ×2 (05:30→17:05)
[2017-02-09] MEDS: Oxycodone/Acetaminophen 5/325 mg Tab PO PRN ×5 (01:42→21:13)
[2017-02-09] MEDS: Clindamycin 600 MG in Sodium Chloride 0.9% 100 ML IVPB SCH ×2 (05:30→17:23)
--- NOTE | 2017-02-09 08:12 | CP.PCM.PN ---
Subjective - Date & Time of Evaluation Date of Evaluation: 02/08/17 Time of Evaluation: 10:10 - Subjective Subjective: Still with a lot of pain in the lower back and radiates to the right lower ext Has no fever On pain meds. Complains of constipation despite meds. Objective - Vital Signs/Intake and Output Vital Signs (last 24 hours): Temp Pulse Resp BP Pulse Ox 97.9 F 61 20 124/59 L 100 02/09/17 08:01 02/09/17 08:01 02/09/17 08:01 02/09/17 08:01 02/09/17 08:01 Intake and Output: 02/09/17 02/09/17 06:59 18:59 Output Total 60 Balance -60 - Medications Medications: Current Medications Amlodipine Besylate (Norvasc) 10 mg PO DAILY [facility] Last Admin: 02/08/17 09:09 Dose: 10 mg Cyclobenzaprine HCl (Flexeril) 5 mg PO BID PRN PRN Reason: Muscle spasm Last Admin: 02/09/17 01:45 Dose: 5 mg Dexamethasone (Decadron) 2 mg PO Q12 [facility] Last Admin: 02/08/17 20:51 Dose: 2 mg Docusate Sodium (Colace) 100 mg PO BID [facility] Last Admin: 02/08/17 17:06 Dose: 100 mg Hydromorphone HCl (Dilaudid) 2 mg PO Q4 PRN PRN Reason: Pain, moderate (4-7) Last Admin: 02/08/17 18:23 Dose: 2 mg Clindamycin Phosphate 600 mg/ (Sodium Chloride) 104 mls @ 54 mls/hr IVPB Q12@ 0500,1700 [facility] Last Admin: 02/09/17 05:30 Dose: 54 mls/hr Ibuprofen (Motrin Tab) 600 mg PO Q8 [facility] Last Admin: 02/09/17 01:44 Dose: Not Given Lactulose (Enulose) 20 gm PO DAILY PRN PRN Reason: Constipation Oxycodone/Acetaminophen (Percocet 5/325 Mg Tab) 1 tab PO Q4 PRN PRN Reason: for pains 8-10 Stop: 02/10/17 19:51 Last Admin: 02/09/17 05:34 Dose: 1 tab Pregabalin (Lyrica) 50 mg PO TID [facility] Last Admin: 02/08/17 17:08 Dose: 50 mg - Labs Labs: 02/07/17 10:55 02/07/17 10:55 - Head Exam Head Exam: NORMAL INSPECTION - Eye Exam Eye Exam: Normal appearance - Neck Exam Neck Exam: Normal Inspection - Respiratory Exam Respiratory Exam: Clear to Ausculation Bilateral - Cardiovascular Exam Cardiovascular Exam: REGULAR RHYTHM - GI/Abdominal Exam GI & Abdominal Exam: Normal Bowel Sounds - Extremities Exam Additional comments: tenderness in the LS area and right hip Assessment and Plan (1) Gait abnormality Status: Acute (2) Gait abnormality Status: Acute (3) Hypertension Status: Acute (4) Lumbar radiculopathy Status: Acute - Assessment and Plan (Free Text) Plan: cont meds adjust pain meds fleet enema lactrulose
--- NOTE | 2017-02-09 17:53 | CP.PCM.PN ---
Subjective - Date & Time of Evaluation Date of Evaluation: 02/09/17 Time of Evaluation: 17:52 - Subjective Subjective: Patient seen in room doing better with combo of flexeril and percocet still draining denies fever continue current plan of care Objective - Vital Signs/Intake and Output Vital Signs (last 24 hours): Temp Pulse Resp BP Pulse Ox 98.2 F 64 20 133/71 98 02/09/17 16:16 02/09/17 16:16 02/09/17 16:16 02/09/17 16:16 02/09/17 16:16 Intake and Output: 02/09/17 02/09/17 06:59 18:59 Output Total 60 Balance -60 - Medications Medications: Current Medications Amlodipine Besylate (Norvasc) 10 mg PO DAILY [facility] Last Admin: 02/09/17 08:30 Dose: 10 mg Cyclobenzaprine HCl (Flexeril) 5 mg PO BID PRN PRN Reason: Muscle spasm Last Admin: 02/09/17 09:49 Dose: 5 mg Dexamethasone (Decadron) 2 mg PO Q12 [facility] Last Admin: 02/09/17 08:30 Dose: 2 mg Docusate Sodium (Colace) 100 mg PO BID [facility] Last Admin: 02/09/17 17:25 Dose: 100 mg Hydromorphone HCl (Dilaudid) 2 mg PO Q4 PRN PRN Reason: Pain, moderate (4-7) Last Admin: 02/09/17 08:33 Dose: 2 mg Clindamycin Phosphate 600 mg/ (Sodium Chloride) 104 mls @ 54 mls/hr IVPB Q12@ 0500,1700 [facility] [place] Last Admin: 02/09/17 17:23 Dose: 54 mls/hr Ibuprofen (Motrin Tab) 600 mg PO Q8 [facility] Last Admin: 02/09/17 17:24 Dose: 600 mg Lactulose (Enulose) 20 gm PO DAILY PRN PRN Reason: Constipation Oxycodone/Acetaminophen (Percocet 5/325 Mg Tab) 1 tab PO Q4 PRN PRN Reason: for pains 8-10 Stop: 02/10/17 19:51 Last Admin: 02/09/17 15:49 Dose: 1 tab Pregabalin (Lyrica) 50 mg PO TID [facility] [place] Last Admin: 02/09/17 17:24 Dose: 50 mg - Labs Labs: 02/07/17 10:55 02/07/17 10:55
[2017-02-10] MEDS: Oxycodone/Acetaminophen 5/325 mg Tab PO PRN ×4 (00:59→20:47)
[2017-02-10] MEDS: Clindamycin 600 MG in Sodium Chloride 0.9% 100 ML IVPB SCH ×3 (05:12→17:20)
--- NOTE | 2017-02-10 19:13 | CP.PCM.PN ---
Subjective - Date & Time of Evaluation Date of Evaluation: 02/10/17 Time of Evaluation: 19:12 - Subjective Subjective: Patient seen in room doing well drain removed pain is controlled no BM x3 days in spite of stool meds Will give a fleets tonight Objective - Vital Signs/Intake and Output Vital Signs (last 24 hours): Temp Pulse Resp BP Pulse Ox 98.1 F 67 20 127/78 100 02/10/17 17:20 02/10/17 17:20 02/10/17 17:20 02/10/17 17:20 02/10/17 17:20 - Medications Medications: Current Medications Amlodipine Besylate (Norvasc) 10 mg PO DAILY [facility] Last Admin: 02/10/17 09:32 Dose: 10 mg Clindamycin HCl (Cleocin) 300 mg PO TID [facility] Last Admin: 02/10/17 19:02 Dose: 300 mg Cyclobenzaprine HCl (Flexeril) 5 mg PO Q6 PRN PRN Reason: Muscle spasm Last Admin: 02/10/17 14:36 Dose: 5 mg Dexamethasone (Decadron) 2 mg PO Q12 [facility] Last Admin: 02/10/17 09:31 Dose: 2 mg Docusate Sodium (Colace) 100 mg PO BID [facility] Last Admin: 02/10/17 17:06 Dose: 100 mg Hydromorphone HCl (Dilaudid) 2 mg PO Q4 PRN PRN Reason: Pain, moderate (4-7) Last Admin: 02/09/17 08:33 Dose: 2 mg Ibuprofen (Motrin Tab) 600 mg PO Q8 [facility] Last Admin: 02/10/17 17:07 Dose: Not Given Lactulose (Enulose) 20 gm PO DAILY PRN PRN Reason: Constipation Last Admin: 02/10/17 17:08 Dose: 20 gm Oxycodone/Acetaminophen (Percocet 5/325 Mg Tab) 1 tab PO Q4 PRN PRN Reason: for pains 8-10 Stop: 02/10/17 19:51 Last Admin: 02/10/17 14:37 Dose: 1 tab Pregabalin (Lyrica) 50 mg PO TID [facility] Last Admin: 02/10/17 17:22 Dose: 50 mg Sodium Phosphate (Fleet Enema) 135 ml ID ONCE ONE Stop: 02/10/17 19:06 - Labs Labs: 02/07/17 10:55 02/07/17 10:55
[2017-02-11] MEDS: Oxycodone/Acetaminophen 5/325 mg Tab PO PRN ×4 (01:15→19:30)
[2017-02-12] MEDS: Oxycodone/Acetaminophen 5/325 mg Tab PO PRN ×2 (00:11→09:08)
[2017-02-12 08:52] VITALS: BP 116/69; PULSE 66; TEMP 97.9; O2SAT 99
--- NOTE | 2017-02-12 09:08 | CP.PCM.PN ---
Subjective - Date & Time of Evaluation Date of Evaluation: 02/09/17 Time of Evaluation: 09:00 - Subjective Subjective: Patient contiues to have some pain on the right hip but less and tolerating PT today Has no fever Still with some significant amount of drain Objective - Vital Signs/Intake and Output Vital Signs (last 24 hours): Temp Pulse Resp BP Pulse Ox 97.9 F 66 20 116/69 99 02/12/17 08:51 02/12/17 09:02 02/12/17 08:51 02/12/17 09:02 02/12/17 08:51 - Medications Medications: Current Medications Amlodipine Besylate (Norvasc) 10 mg PO DAILY [facility] Last Admin: 02/12/17 09:02 Dose: 10 mg Clindamycin HCl (Cleocin) 300 mg PO TID [facility] Last Admin: 02/12/17 09:02 Dose: 300 mg Cyclobenzaprine HCl (Flexeril) 5 mg PO Q6 PRN PRN Reason: Muscle spasm Last Admin: 02/12/17 00:12 Dose: 5 mg Dexamethasone (Decadron) 2 mg PO Q12 [facility] Last Admin: 02/12/17 09:02 Dose: 2 mg Docusate Sodium (Colace) 100 mg PO BID [facility] Last Admin: 02/12/17 09:03 Dose: 100 mg Hydromorphone HCl (Dilaudid) 2 mg PO Q4 PRN PRN Reason: Pain, moderate (4-7) Last Admin: 02/09/17 08:33 Dose: 2 mg Ibuprofen (Motrin Tab) 600 mg PO Q8 [facility] Last Admin: 02/12/17 09:03 Dose: Not Given Lactulose (Enulose) 20 gm PO DAILY PRN PRN Reason: Constipation Last Admin: 02/12/17 09:04 Dose: 20 gm Oxycodone/Acetaminophen (Percocet 5/325 Mg Tab) 1 tab PO Q4 PRN PRN Reason: for pains 8-10 Stop: 02/13/17 20:33 Last Admin: 02/12/17 00:11 Dose: 1 tab Pregabalin (Lyrica) 50 mg PO TID [facility] Last Admin: 02/12/17 09:02 Dose: 50 mg - Labs Labs: 02/07/17 10:55 02/07/17 10:55 - Head Exam Head Exam: NORMAL INSPECTION - Eye Exam Eye Exam: Normal appearance - ENT Exam ENT Exam: Mucous Membranes Moist - Respiratory Exam Respiratory Exam: Clear to Ausculation Bilateral - Cardiovascular Exam Cardiovascular Exam: REGULAR RHYTHM - GI/Abdominal Exam GI & Abdominal Exam: Normal Bowel Sounds - Neurological Exam Neurological Exam: CN II-XII Intact, Oriented x3 Assessment and Plan (1) Gait abnormality Status: Acute (2) Gait abnormality Status: Acute (3) Hypertension Status: Acute (4) Lumbar radiculopathy Status: Acute - Assessment and Plan (Free Text) Plan: contmeds cont pain meds followup with Dr Obregon keep drain for now.
--- NOTE | 2017-02-12 09:10 | CP.PCM.PN ---
Subjective - Date & Time of Evaluation Date of Evaluation: 02/10/17 Time of Evaluation: 10:00 - Subjective Subjective: Patient has less pain in the right hip and lower back Also noted less drain. Has no fever Tolerates all PT. Objective - Vital Signs/Intake and Output Vital Signs (last 24 hours): Temp Pulse Resp BP Pulse Ox 97.9 F 66 20 116/69 99 02/12/17 08:51 02/12/17 09:02 02/12/17 08:51 02/12/17 09:02 02/12/17 08:51 - Medications Medications: Current Medications Amlodipine Besylate (Norvasc) 10 mg PO DAILY [facility] Last Admin: 02/12/17 09:02 Dose: 10 mg Clindamycin HCl (Cleocin) 300 mg PO TID [facility] Last Admin: 02/12/17 09:02 Dose: 300 mg Cyclobenzaprine HCl (Flexeril) 5 mg PO Q6 PRN PRN Reason: Muscle spasm Last Admin: 02/12/17 00:12 Dose: 5 mg Dexamethasone (Decadron) 2 mg PO Q12 [facility] Last Admin: 02/12/17 09:02 Dose: 2 mg Docusate Sodium (Colace) 100 mg PO BID [facility] Last Admin: 02/12/17 09:03 Dose: 100 mg Hydromorphone HCl (Dilaudid) 2 mg PO Q4 PRN PRN Reason: Pain, moderate (4-7) Last Admin: 02/09/17 08:33 Dose: 2 mg Ibuprofen (Motrin Tab) 600 mg PO Q8 [facility] Last Admin: 02/12/17 09:03 Dose: Not Given Lactulose (Enulose) 20 gm PO DAILY PRN PRN Reason: Constipation Last Admin: 02/12/17 09:04 Dose: 20 gm Oxycodone/Acetaminophen (Percocet 5/325 Mg Tab) 1 tab PO Q4 PRN PRN Reason: for pains 8-10 Stop: 02/13/17 20:33 Last Admin: 02/12/17 00:11 Dose: 1 tab Pregabalin (Lyrica) 50 mg PO TID [facility] Last Admin: 02/12/17 09:02 Dose: 50 mg - Labs Labs: 02/07/17 10:55 02/07/17 10:55 - Head Exam Head Exam: NORMAL INSPECTION - Eye Exam Eye Exam: Normal appearance - ENT Exam ENT Exam: Mucous Membranes Moist - Respiratory Exam Respiratory Exam: Clear to Ausculation Bilateral - Cardiovascular Exam Cardiovascular Exam: REGULAR RHYTHM - GI/Abdominal Exam GI & Abdominal Exam: Normal Bowel Sounds - Neurological Exam Neurological Exam: CN II-XII Intact, Oriented x3 Assessment and Plan (1) Gait abnormality Status: Acute (2) Gait abnormality Status: Acute (3) Hypertension Status: Acute (4) Lumbar radiculopathy Status: Acute - Assessment and Plan (Free Text) Plan: Cont meds Cont tx Cont PT
--- NOTE | 2017-02-12 09:12 | CP.PCM.PN ---
Subjective - Date & Time of Evaluation Date of Evaluation: 02/11/17 Time of Evaluation: 10:30 - Subjective Subjective: Patient continue to improve Has no chest pain or SOB Has no fever. Objective - Vital Signs/Intake and Output Vital Signs (last 24 hours): Temp Pulse Resp BP Pulse Ox 97.9 F 66 20 116/69 99 02/12/17 08:51 02/12/17 09:02 02/12/17 08:51 02/12/17 09:02 02/12/17 08:51 - Medications Medications: Current Medications Amlodipine Besylate (Norvasc) 10 mg PO DAILY [facility] Last Admin: 02/12/17 09:02 Dose: 10 mg Clindamycin HCl (Cleocin) 300 mg PO TID [facility] Last Admin: 02/12/17 09:02 Dose: 300 mg Cyclobenzaprine HCl (Flexeril) 5 mg PO Q6 PRN PRN Reason: Muscle spasm Last Admin: 02/12/17 00:12 Dose: 5 mg Dexamethasone (Decadron) 2 mg PO Q12 [facility] Last Admin: 02/12/17 09:02 Dose: 2 mg Docusate Sodium (Colace) 100 mg PO BID [facility] Last Admin: 02/12/17 09:03 Dose: 100 mg Hydromorphone HCl (Dilaudid) 2 mg PO Q4 PRN PRN Reason: Pain, moderate (4-7) Last Admin: 02/09/17 08:33 Dose: 2 mg Ibuprofen (Motrin Tab) 600 mg PO Q8 [facility] Last Admin: 02/12/17 09:03 Dose: Not Given Lactulose (Enulose) 20 gm PO DAILY PRN PRN Reason: Constipation Last Admin: 02/12/17 09:04 Dose: 20 gm Oxycodone/Acetaminophen (Percocet 5/325 Mg Tab) 1 tab PO Q4 PRN PRN Reason: for pains 8-10 Stop: 02/13/17 20:33 Last Admin: 02/12/17 00:11 Dose: 1 tab Pregabalin (Lyrica) 50 mg PO TID [facility] Last Admin: 02/12/17 09:02 Dose: 50 mg - Labs Labs: 02/07/17 10:55 02/07/17 10:55 - Head Exam Head Exam: NORMAL INSPECTION - Eye Exam Eye Exam: Normal appearance - ENT Exam ENT Exam: Mucous Membranes Moist - Respiratory Exam Respiratory Exam: Clear to Ausculation Bilateral - Cardiovascular Exam Cardiovascular Exam: REGULAR RHYTHM - GI/Abdominal Exam GI & Abdominal Exam: Normal Bowel Sounds - Neurological Exam Neurological Exam: CN II-XII Intact, Oriented x3 Assessment and Plan (1) Gait abnormality Status: Acute (2) Gait abnormality Status: Acute (3) Hypertension Status: Acute (4) Lumbar radiculopathy Status: Acute - Assessment and Plan (Free Text) Plan: cont meds cont tx cont PT DC plans.
--- NOTE | 2017-02-12 09:15 | CP.PCM.DIS ---
Provider - Provider Date of Admission: 02/04/17 18:27 Attending physician: Paresh Rivera MD Primary care physician: Mary Ellen Aleman MD Time Spent in preparation of Discharge (in minutes): 30 Diagnosis - Discharge Diagnosis (1) Gait abnormality Status: Acute (2) Gait abnormality Status: Acute (3) Hypertension Status: Acute (4) Lumbar radiculopathy Status: Acute Hospital Course - Lab Results Lab Results: Most Recent Lab Values WBC 16.9 K/uL (4.8-10.8) H 02/07/17 10:55 RBC 3.80 Mil/uL (3.80-5.20) 02/07/17 10:55 Hgb 10.7 g/dL (12.0-16.0) L 02/07/17 10:55 Hct 33.6 % (34.0-47.0) L 02/07/17 10:55 MCV 88.5 fl (81.0-99.0) 02/07/17 10:55 MCH 28.3 pg (27.0-31.0) 02/07/17 10:55 MCHC 31.9 g/dL (33.0-37.0) L 02/07/17 10:55 RDW 14.5 % (11.5-14.5) 02/07/17 10:55 Plt Count 210 K/uL (130-400) 02/07/17 10:55 MPV 9.3 fl (7.2-11.7) 02/07/17 10:55 Neut % (Auto) 74.0 % (50.0-75.0) 02/07/17 10:55 Lymph % (Auto) 18.8 % (20.0-40.0) L 02/07/17 10:55 Rich % (Auto) 6.8 % (0.0-10.0) 02/07/17 10:55 Eos % (Auto) 0.1 % (0.0-4.0) 02/07/17 10:55 Baso % (Auto) 0.3 % (0.0-2.0) 02/07/17 10:55 Neut # 12.5 K/uL (1.8-7.0) H 02/07/17 10:55 Lymph # 3.2 K/uL (1.0-4.3) 02/07/17 10:55 Rich # 1.2 K/uL (0.0-0.8) H 02/07/17 10:55 Eos # 0.0 K/uL (0.0-0.7) 02/07/17 10:55 Baso # 0.0 K/uL (0.0-0.2) 02/07/17 10:55 Sodium 137 mmol/l (132-148) 02/07/17 10:55 Potassium 4.1 MMOL/L (3.6-5.0) 02/07/17 10:55 Chloride 104 mmol/L (98-107) 02/07/17 10:55 Carbon Dioxide 27 mmol/L (22-30) 02/07/17 10:55 Anion Gap 10 (10-20) 02/07/17 10:55 BUN 13 mg/dl (7-17) 02/07/17 10:55 Creatinine 0.7 mg/dL (0.7-1.2) 02/07/17 10:55 Est GFR ( Amer) > 60 02/07/17 10:55 Est GFR (Non-Af Amer) > 60 02/07/17 10:55 Random Glucose 106 mg/dL (65-105) H 02/07/17 10:55 Calcium 9.2 mg/dL (8.4-10.2) 02/07/17 10:55 Total Bilirubin 0.2 mg/dl (0.2-1.3) 02/07/17 10:55 AST 18 U/L (14-36) 02/07/17 10:55 ALT 26 U/L (9-52) 02/07/17 10:55 Alkaline Phosphatase 39 U/L (38-126) 02/07/17 10:55 Total Protein 6.4 G/DL (6.3-8.2) 02/07/17 10:55 Albumin 3.8 g/dL (3.5-5.0) 02/07/17 10:55 Globulin 2.7 gm/dL (2.2-3.9) 02/07/17 10:55 Albumin/Globulin Ratio 1.4 (1.0-2.1) 02/07/17 10:55 - Hospital Course Hospital Course: This is a 46 y/o female admitted for continuation of phys therapy. Had a LS laminectomy and continued t have pain on the LS area. Also noted to have excessive drain Has a hx of intractable back pain. Discharge Exam - Head Exam Head Exam: NORMAL INSPECTION - Eye Exam Eye Exam: Normal appearance - Respiratory Exam Respiratory Exam: NORMAL BREATHING PATTERN - Cardiovascular Exam Cardiovascular Exam: REGULAR RHYTHM - GI/Abdominal Exam GI & Abdominal Exam: Normal Bowel Sounds - Neurological Exam Neurological exam: CN II-XII Intact, Oriented x3 - Psychiatric Exam Psychiatric exam: Normal Mood Discharge Plan - Follow Up Plan Condition: GOOD Disposition: HOME/ ROUTINE Additional Instructions: follow up with PMD and Dr jiang follow up with Dr Obregon for pain mgt Rx given Referrals: Mary Ellen Aleman MD [Primary Care Provider] -
== END 2017-02-12 14:00 | disposition home or self-care (01) | DRG 950 ==
LOC: H.TCU 18:27
PROVIDERS: ADMIT Family Medicine; ATTEND Family Medicine
PROC: F07Z9ZZ Gait Training/Functional Ambulation Treatment (ICD-10-PCS; principal; 2017-02-04)
PROC: F07L0ZZ Range of Motion and Joint Mobility Treatment of Musculoskeletal System - Lower Back / Lower Extremity (ICD-10-PCS; 2017-02-04)
PROC: F07K6ZZ Therapeutic Exercise Treatment of Musculoskeletal System - Upper Back / Upper Extremity (ICD-10-PCS; 2017-02-04)
PROC: F08Z4ZZ Home Management Treatment (ICD-10-PCS; 2017-02-04)
DX: Z48.89 Encounter for other specified surgical aftercare (principal); I10 Essential (primary) hypertension; R26.9 Unspecified abnormalities of gait and mobility; Z88.0 Allergy status to penicillin; K59.00 Constipation, unspecified; F17.210 Nicotine dependence, cigarettes, uncomplicated